=== PATIENT | female | born 1975 | race Caucasian/White ===

== ENCOUNTER → 2020-09-08 07:18 | Outpatient (CLI) | payer SELFPAY ==
--- NOTE | ~2020-09-08 | MM_ITS ---
EXAMINATION: MM screening [facility] BI w salo HISTORY: Screening mammogram TECHNIQUE: Craniocaudal and mediolateral oblique 3-D tomosynthesis images were obtained and synthetic 2-D images were generated. CAD analysis was submitted and interpreted. COMPARISON: 08/31/2019, 08/15/2017, 06/20/2017 BREAST PARENCHYMAL COMPOSITION: There are scattered areas of fibroglandular density. FINDINGS: There is no evidence of suspicious mass, calcification, or architectural distortion to sugg est malignancy in either breast. There has been no suspicious interval change. IMPRESSION: 1. No mammographic evidence of malignancy. 2. Recommend routine screening mammography in one year. BI-RADS Category 1: Negative Reviewed, dictated and finalized at location A. SH SAW OPERATOR
== END ==
PROVIDERS: Visit Provider Nurse Practitioner
DX: Z12.31 Encounter for screening mammogram for malignant neoplasm of breast (principal)
CPT/HCPCS: 77063; 77067

== ENCOUNTER 2022-03-02 07:33 | Outpatient (CLI) | payer OTHER, SELFPAY ==
--- NOTE | ~2022-03-02 | MM_ITS ---
EXAMINATION: MM screening [facility] BI w salo HISTORY: Screening mammogram TECHNIQUE: Craniocaudal and mediolateral oblique 3-D tomosynthesis images were obtained and synthetic 2-D images were generated. CAD analysis was submitted and interpreted. COMPARISON: 09/08/2020, 08/31/2019 bilateral screening mammogram examinations BREAST PARENCHYMAL COMPOSITION: FINDINGS: There is no evidence of suspicious mass, calcification, or architectural distortion to sugg est malignancy in either breast. There has been no suspicious interval change. IMPRESSION: 1. No mammographic evidence of malignancy. 2. Recommend routine screening mammography in one year. BI-RADS Category 1: Negative Reviewed, dictated and finalized at location A.
== END 2022-03-02 07:34 | disposition home or self-care (01) ==
LOC: ANHIMG 07:35
PROVIDERS: Visit Provider Obstetrics & Gynecology Gynecology
DX: Z12.31 Encounter for screening mammogram for malignant neoplasm of breast (principal)
CPT/HCPCS: 77063; 77067

== ENCOUNTER 2022-12-21 10:43 | Emergency (ER) | payer OTHER, SELFPAY ==
[2022-12-21 10:50] VITALS: BP 140/93; PULSE 99; RESP 16; TEMP 36.6; O2SAT 100
--- NOTE | 2022-12-21 10:53 | ED.URI ---
HPI - URI/Sore Throat General Stated Complaint: sore throat Time Seen by Provider: 12/21/22 10:56 Source: patient and RN notes reviewed Mode of arrival: ambulatory Limitations: no limitations History of Present Illness HPI Narrative: 47-year-old female presents with concern for sore throat, nasal congestion, rhinorrhea, cough that started on Tuesday. Reports her boyfriend had strep throat last week. She reports she is taking ibuprofen which helps with her symptoms MD elicited complaint: cough and sore throat Related Data Home Medications Medication Instructions Recorded Confirmed levonorgestrel-ethinyl estradiol 1 tablet PO DAILY 12/21/22 12/21/22 0.1 mg-20 mcg tablet (Lessina) oxybutynin chloride 5 mg tablet 2.5 mg PO BID 12/21/22 12/21/22 Allergies Allergy/AdvReac Type Severity Reaction Status Date / Time No Known Allergies Allergy Unverified 12/21/22 10:47 Review of Systems Review of Systems: CONSTITUTIONAL: Reports malaise, low-grade fever. Denies chills, sweats EYES: Denies visual changes, redness, or discharge. ENT: Reports rhinorrhea, congestion, sinus pain, otalgia and sore throat. CARDIOVASCULAR: Denies chest pain, palpitations, or edema. RESPIRATORY: Reports cough. Denies dyspnea. GASTROINTESTINAL: Denies abdominal pain, nausea, vomiting, diarrhea SKIN: Denies rash or itching. MUSCULOSKELETAL: Reports myalgia. NEUROLOGIC: Denies headache. All systems reviewed & are unremarkable except as noted in HPI and below PMFSH Comments At time of signature, agree with nursing past medical, surgical, social and family history. There is no relevant family history pertinent to the presenting complaint Exam Narrative: GENERAL: Well-appearing, well-nourished, and in no acute distress. HEAD: Normocephalic EYES: PERRLA, conjunctivae clear ENT: Nares clear, clear discharge. Mucous membranes moist. TM pearly stephenson with dull light reflex bilaterally; no tragal tenderness. Oropharynx erythematous without lesions. Tonsils not enlarged and without exudate, no drooling, no hoarseness, no trismus, uvula midline. NECK: Supple. No lymphadenopathy CHEST: Clear to auscultation, breath sounds equal. No wheezing, rhonchi, rales, or stridor. No respiratory distress, speaks in full sentences. HEART: Regular rate and rhythm. No murmur heard. SKIN: Warm, dry, no rash. NEURO: Alert and oriented x3. PSYCH: Normal mood and affect Course Course Emergency Course: Patient is aware of diagnosis, understands and agrees to treatment plan. Anticipatory guidance given. Patient agrees to follow-up as directed and is aware of reasons to seek care at the emergency department. Portions of this record may have been created with voice recognition software Level of Care: Express Care Visit Vital Signs Vital signs: Vital Signs Temperature 97.9 F 12/21/22 10:50 Pulse Rate 99 12/21/22 10:50 Respiratory Rate 16 12/21/22 10:50 Blood Pressure 140/93 H 12/21/22 10:50 Pulse Oximetry 100 12/21/22 10:50 Oxygen Delivery Room Air 12/21/22 10:50 Temperature 97.9 F 12/21/22 10:50 Pulse Rate 99 12/21/22 10:50 Respiratory Rate 16 12/21/22 10:50 Blood Pressure 140/93 H 12/21/22 10:50 Pulse Oximetry 100 12/21/22 10:50 Oxygen Delivery Room Air 12/21/22 10:50 Reviewed. MDM - URI/Sore Throat MDM Narrative Medical decision making narrative: Differential diagnosis considered: Solis virus, strep pharyngitis, allergic rhinitis, upper respiratory tract infection, sinusitis, rhinosinusitis, nasopharyngitis. viral pharyngitis, otitis media, otitis externa, pneumonia, bronchitis, viral cough syndrome, viral syndrome, and influenza. Exam findings show no acute concerns or changes; patient is non-toxic appearing and is in no distress. Patient is appropriate for outpatient treatment and follow-up. Lab Data Attestation: I reviewed the patient's lab results. Critical Care Time Critical Care Time Critical Care Time: No
== END 2022-12-21 11:20 | disposition home or self-care (01) ==
PROVIDERS: Emergency Provider Nurse Practitioner; PCP Internal Medicine
DX: J02.9 Acute pharyngitis, unspecified (principal)
CPT/HCPCS: 87081; 87880; 99213; G0463

== ENCOUNTER 2022-12-23 10:31 | Emergency (ER) | payer OTHER, SELFPAY ==
[2022-12-23 10:39] VITALS: BP 128/88; PULSE 102; RESP 16; TEMP 36.7; O2SAT 100
--- NOTE | 2022-12-23 10:46 | ED.EAR ---
HPI - Ear Problem General Chief complaint: Ear Stated complaint: sore throat, lt ear pain Source: patient Mode of arrival: ambulatory Limitations: no limitations History of Present Illness HPI Narrative: 47 y/o female presented for c/o left ear pain, onset this morning. She endorses nasal congestion, cough, and sore throat for about 4 days. She was seen at our facility 2 days ago and was told she had a negative strep test. Cough is productive of yellow sputum. She has taken Tylenol and ibuprofen, increased humidity, and used cough cold medication without relief. MD Complaint: ear pain Related Data Home Medications Medication Instructions Recorded Confirmed levonorgestrel-ethinyl estradiol 1 tablet PO DAILY 12/21/22 12/23/22 0.1 mg-20 mcg tablet (Lessina) oxybutynin chloride 5 mg tablet 2.5 mg PO BID 12/21/22 12/23/22 Allergies Allergy/AdvReac Type Severity Reaction Status Date / Time No Known Allergies Allergy Verified 12/23/22 10:42 Review of Systems Review of Systems: CONSTITUTIONAL: Denies malaise, chills, or fever. EYES: Denies visual changes, redness, or discharge. ENT: per HPI CARDIOVASCULAR: Denies chest pain, palpitations, or edema. RESPIRATORY: Denies cough or dyspnea. GASTROINTESTINAL: Denies abdominal pain, nausea, vomiting, diarrhea SKIN: Denies rash or itching. MUSCULOSKELETAL: Denies myalgia. NEUROLOGIC: Denies headache. All systems reviewed & are unremarkable except as noted in HPI and below PMFSH Past Medical History Medical History (Updated 12/23/22 @ 10:58 by Haleigh Barker, KEELY) No pertinent past medical history Comments At time of signature, agree with nursing past medical, surgical, social and family history. There is no relevant family history pertinent to the presenting complaint Exam Narrative: GENERAL: appears in pain; no acute distress. HEAD: Normocephalic EYES: PERRLA, conjunctivae clear ENT: Nares clear. Mucous membranes moist. Right TM pearly stephenson with dull light reflex and clear effusion; Left TM erythematous, bulging, with purulent effusion; no tragal tenderness. Oropharynx not erythematous Tonsils not enlarged and without exudate, no drooling, no hoarseness, no trismus, uvula midline. NECK: Supple. No lymphadenopathy CHEST: Clear to auscultation, breath sounds equal. HEART: Regular rate and rhythm. No murmur heard. SKIN: Warm, dry, no rash. NEURO: Alert and oriented x3. PSYCH: Normal mood and affect Course Course Emergency Course: Patient is aware of diagnosis, understands and agrees to treatment plan. Anticipatory guidance given. Patient agrees to follow-up as directed and is aware of reasons to seek care at the emergency department. Portions of this record may have been created with voice recognition software Level of Care: Express Care Visit Vital Signs Vital signs: Vital Signs Temperature 98.1 F 12/23/22 10:39 Pulse Rate 102 H 12/23/22 10:39 Respiratory Rate 16 12/23/22 10:39 Blood Pressure 128/88 12/23/22 10:39 Pulse Oximetry 100 12/23/22 10:39 Temperature 98.1 F 12/23/22 10:39 Pulse Rate 102 H 12/23/22 10:39 Respiratory Rate 16 12/23/22 10:39 Blood Pressure 128/88 12/23/22 10:39 Pulse Oximetry 100 12/23/22 10:39 Reviewed Medical Decision Making MDM Narrative Medical decision making narrative: Advised supportive measures and signs/symptoms to go to the ER. Patient is appropriate for outpatient treatment and follow-up. Differential Diagnosis Differential Diagnosis: Coronavirus, strep pharyngitis, allergic rhinitis, upper respiratory tract infection, sinusitis, rhinosinusitis, nasopharyngitis, viral pharyngitis, otitis media, otitis externa, eustachian tube dysfunction, foreign body, cerumen impaction. Vital Signs Vital Signs: Vital Signs Temperature 98.1 F 12/23/22 10:39 Pulse Rate 102 H 12/23/22 10:39 Respiratory Rate 16 12/23/22 10:39 Blood Pressure 128/88 12/23/22 10:39 Pulse Oximetry
== END 2022-12-23 11:12 | disposition home or self-care (01) ==
PROVIDERS: Emergency Provider Nurse Practitioner Family; PCP Internal Medicine
DX: H66.92 Otitis media, unspecified, left ear (principal)
CPT/HCPCS: 99213; G0463

== ENCOUNTER 2023-02-21 10:45 | Outpatient (CLI) | payer OTHER, SELFPAY | END 2023-02-21 10:46 | disposition home or self-care (01) | LOC: ANHAUDIO 10:46 | PROVIDERS: PCP Internal Medicine; Visit Provider Otolaryngology | DX: H69.80 Other specified disorders of Eustachian tube, unspecified ear (principal); H90.42 Sensorineural hearing loss, unilateral, left ear, with unrestricted hearing on the contralateral side | CPT/HCPCS: 92557; 92567 ==

== ENCOUNTER 2023-11-08 07:32 | Outpatient (CLI) | payer OTHER, SELFPAY ==
--- NOTE | ~2023-11-08 | MM_ITS ---
EXAMINATION: MM screening [facility] BI w salo HISTORY: Screening mammogram TECHNIQUE: Craniocaudal and mediolateral oblique 3-D tomosynthesis images were obtained and synthetic 2-D images were generated. CAD analysis was submitted and interpreted. COMPARISON: 03/02/2022, 11/08/2019, 08/31/2019 BREAST PARENCHYMAL COMPOSITION: The breasts are almost entirely fatty. FINDINGS: No suspicious mass, calcification, or architectural distortion are identified in either robert ast to suggest malignancy. There has been no suspicious interval change. IMPRESSION: 1. No mammographic evidence of malignancy. 2. Recommend routine screening mammography in one year. BI-RADS Category 1: Negative Reviewed, dictated and finalized at location A. ERENCE DIRECTOR
== END 2023-11-08 07:33 | disposition home or self-care (01) ==
PROVIDERS: PCP Internal Medicine; Visit Provider Nurse Practitioner
DX: Z12.31 Encounter for screening mammogram for malignant neoplasm of breast (principal)
CPT/HCPCS: 77063; 77067

== ENCOUNTER 2024-01-15 15:53 | Emergency (ER) | payer OTHER, SELFPAY ==
[2024-01-15 16:02] VITALS: PULSE 73; RESP 16; TEMP 36.8; O2SAT 99
--- NOTE | 2024-01-15 16:11 | ED.WOUNDLAC ---
HPI - Wound/Laceration General Chief Complaint: Wound/Laceration Stated Complaint: Cut Finger Time Seen by Provider: 01/15/24 16:11 Source: patient Mode of arrival: ambulatory Limitations: no limitations History of Present Illness HPI narrative: 48 yo F presents with laceration to L index finger. Pt was using electric margin trimmer and cut her finger. bleeding controlled on arrival. ROM and distal NV intact. No damage to nail. All systems reviewed and negative except as noted above. Related Data Home Medications Medication Instructions Recorded Confirmed levonorgestrel-ethinyl estradiol 1 tablet PO DAILY 12/21/22 12/23/22 0.1 mg-20 mcg tablet (Lessina) oxybutynin chloride 5 mg tablet 2.5 mg PO BID 12/21/22 12/23/22 bupropion HCl 150 mg tablet,12 hr 150 mg PO DAILY 02/08/23 sustained-release (Wellbutrin SR) lansoprazole 15 mg capsule,delayed 15 mg PO DAILY 02/08/23 release (Prevacid 24Hr) zonisamide 100 mg capsule 100 mg PO DAILY 02/08/23 Allergies Allergy/AdvReac Type Severity Reaction Status Date / Time No Known Allergies Allergy Verified 02/08/23 12:57 Review of Systems Review of Systems: CONSTITUTIONAL: Denies fever, chills, or sweats. EYES: Denies visual changes, redness, or discharge. ENT: Denies rhinorrhea, congestion, sore throat, or otalgia. CARDIOVASCULAR: Denies chest pain, palpitations, or edema. RESPIRATORY: Denies cough or dyspnea. GASTROINTESTINAL: Denies abdominal pain, nausea, vomiting, or diarrhea. GENITOURINARY: Denies dysuria or hematuria. SKIN: Denies rash or itching. Reports laceration to left index finger. MUSCULOSKELETAL: Denies back pain, joint pain, or myalgia. NEUROLOGIC: Denies headache, numbness, or weakness. PSYCHIATRIC: Denies anxiety or depression. All other systems reviewed are negative, except as documented in HPI. [facility] Past Medical History Medical History No pertinent past medical history Family History Family History Father Diabetes mellitus Hypertension Heart disease Cerebrovascular accident Mother Depression Sibling Depression Grandparent Cancer Diabetes mellitus Hypertension Grandparent Cancer Social History Social History Smoking status: Never smoker Alcohol intake: current Lack of Transportation: No Lack of Food: Never True Current Housing: I Have Housing Concerned About Future Housing: No Difficulty Paying Gas/Electric Bills: No Difficulty Paying for Meds: No Currently Unemployed: No Education: Master's Degree or Higher Difficulty w/ Childcare or Family Care: No Comments At time of signature, agree with nursing past medical, surgical, social and family history. There is no relevant family history pertinent to the presenting complaint. Exam Narrative: GENERAL: This is a well-nourished, well-developed patient, in no apparent distress. HEAD: normocephalic, atraumatic. EYES: PERRL. Sclera clear/white. Vision is grossly intact. EARS: External ears normal NOSE: External nose normal NECK: Neck supple, non-tender without lymphadenopathy, masses or thyromegaly. CARDIOVASCULAR: Regular rate and rhythm without murmurs, gallops, or rubs. RESPIRATORY: Clear to auscultation. Breath sounds equal bilaterally. No wheezes, rales, or rhonchi. SKIN: warm, Dry, with no suspicious lesions or rash, good texture and turgor. laceration to distal aspect L index finger. irregular, skin flap with some avulsed skin NEURO: awake, alert, and oriented to person, place and time. There were no obvious focal neurologic abnormalities. EXTREMITIES: No joint tenderness, effusion, or edema noted. Course Course Level of Care: Express Care Visit Vital Signs Vital signs: Vital Signs Temperature 36.8 C 01/15/24 16:02 Pulse Rate 73 01/15/24 16:02 Respir
== END 2024-01-15 17:21 | disposition home or self-care (01) ==
PROVIDERS: Emergency Provider Nurse Practitioner Family; PCP Internal Medicine
DX: S61.211A Laceration without foreign body of left index finger without damage to nail, initial encounter (principal); W29.3XXA Contact with powered garden and outdoor hand tools and machinery, initial encounter
CPT/HCPCS: 12001; 99213; G0463

== ENCOUNTER 2024-01-25 17:23 | Emergency (ER) | payer OTHER, SELFPAY ==
--- NOTE | 2024-01-25 17:24 | ED.WOUNDLAC ---
HPI - Wound/Laceration General Chief Complaint: Wound/Laceration Stated Complaint: SUTURE REMOVAL Time Seen by Provider: 01/25/24 17:23 Source: patient Mode of arrival: ambulatory Limitations: no limitations History of Present Illness HPI narrative: Patient is a 48-year-old female who presents for suture removal of left index finger. Sutures were placed 10 days ago. Denies any redness swelling or drainage wound. Related Data Home Medications Medication Instructions Recorded Confirmed levonorgestrel-ethinyl estradiol 1 tablet PO DAILY 12/21/22 01/25/24 0.1 mg-20 mcg tablet (Lessina) oxybutynin chloride 5 mg tablet 2.5 mg PO BID 12/21/22 01/25/24 bupropion HCl 150 mg tablet,12 hr 150 mg PO DAILY 02/08/23 01/25/24 sustained-release (Wellbutrin SR) lansoprazole 15 mg capsule,delayed 15 mg PO DAILY 02/08/23 01/25/24 release (Prevacid 24Hr) zonisamide 100 mg capsule 100 mg PO DAILY 02/08/23 01/25/24 Allergies Allergy/AdvReac Type Severity Reaction Status Date / Time No Known Allergies Allergy Verified 01/25/24 17:28 Review of Systems Review of Systems: All systems reviewed & are unremarkable except as noted in HPI and below Constitutional: Constitutional: Denies body ache(s), Denies chills, Denies fatigue, Denies fever(s), Denies headache(s), Denies malaise and Denies weakness Eyes: Eyes: Denies blurry vision, Denies irritation and Denies loss of vision ENT: Denies otalgia, Denies headache(s), Denies nasal discharge, Denies sinus pain and Denies sore throat Cardiovascular: Cardiovascular: Denies chest pain, Denies irregular heart rhythm and Denies dyspnea Respiratory: Respiratory: Denies dyspnea Gastrointestinal: Gastrointestinal: Denies abdominal pain, Denies melena, Denies hematochezia, Denies diarrhea, Denies nausea and Denies vomiting Musculoskeletal: Musculoskeletal: Denies back pain, Denies myalgias and Denies arthralgias Integumentary/Breasts: Skin/Breast: Denies pruritus, Denies rash and Reports wounds Neurologic: Denies headache(s), Denies loss of vision and Denies weakness Psychiatric: Psychiatric: Reports no additional psychiatric complaints Endocrine: Endocrine: Denies fatigue PMFSH Past Medical History Medical History No pertinent past medical history Family History Family History Father Diabetes mellitus Hypertension Heart disease Cerebrovascular accident Mother Depression Sibling Depression Grandparent Cancer Diabetes mellitus Hypertension Grandparent Cancer Social History Social History Smoking status: Never smoker Alcohol intake: current Lack of Transportation: No Lack of Food: Never True Current Housing: I Have Housing Concerned About Future Housing: No Difficulty Paying Gas/Electric Bills: No Difficulty Paying for Meds: No Currently Unemployed: No Education: Master's Degree or Higher Difficulty w/ Childcare or Family Care: No Comments At time of signature, agree with nursing past medical, surgical, social and family history. There is no relevant family history pertinent to the presenting complaint. Exam Const: General: cooperative, healthy appearing, comfortable, no acute distress and well nourished Nutritional Appearance: well nourished Orientation/consciousness: patient oriented x3 Limitations: no limitations HENMT: Head: normal to inspection, normocephalic and atraumatic Ears: hearing grossly normal bilaterally and external ears normal Face/Nose/Sinus: Normal external nose present, normal facial exam and face symmetric Face and sinus: normal facial exam and face symmetric Mouth: Yes lip normal Eyes: General: appearance normal, both eyes and all related structures Alignment and Position: alignment normal and position normal Periorbital: periorbital findings n
[2024-01-25 17:36] VITALS: BP 113/83; PULSE 76; RESP 14; TEMP 36.4; O2SAT 100
== END 2024-01-25 17:54 | disposition home or self-care (01) ==
PROVIDERS: Emergency Provider Nurse Practitioner Family; PCP Internal Medicine
DX: S61.211D Laceration without foreign body of left index finger without damage to nail, subsequent encounter (principal); X58.XXXD Exposure to other specified factors, subsequent encounter
CPT/HCPCS: 99211; G0463

== ENCOUNTER 2025-09-13 15:35 | Outpatient (CLI) | payer OTHER, SELFPAY ==
--- NOTE | ~2025-09-13 | MM_ITS ---
EXAMINATION: MM screening [facility] BI w salo HISTORY: Screening TECHNIQUE: Craniocaudal and mediolateral oblique 3-D tomosynthesis images were obtained and synthetic 2-D images were generated. CAD analysis was submitted and interpreted. COMPARISON: Comparison to multiple prior studies sequentially, with oldest reviewed study dated 06/20/2017. BREAST PARENCHYMAL COMPOSITION: Not Dense: The breasts are almost entirely fatty. FINDINGS: There is no evidence of suspicious mass, calcification, or architectural distortion to suggest malignancy in either breast. There has been no suspicious interval change. IMPRESSION: 1. No mammographic evidence of malignancy. 2. Recommend routine screening mammography in one year. BI-RADS Category 1: Negative Reviewed, dictated and finalized at location B. ADMINISTRATOR
== END 2025-09-13 15:36 | disposition home or self-care (01) ==
PROVIDERS: PCP Internal Medicine; Visit Provider Nurse Practitioner
DX: Z12.31 Encounter for screening mammogram for malignant neoplasm of breast (principal)
CPT/HCPCS: 77063; 77067